=== PATIENT | male | born 1950 | race African-American/Black ===

== ENCOUNTER 2021-11-07 09:29 | Emergency (ER) | payer SELFPAY ==
[2021-11-07 09:46] VITALS: BP 135/94; PULSE 88; TEMP 98.5; BMI 18.8
[2021-11-07] MEDS ORDERED: SODIUM CHLORIDE 0.9% 500 ML INFUS.BAG IV ONE (10:19)
[2021-11-07 11:17] LABS: BASO % 0.7 % (0-2.0); EOS % 0.2 % (0-4.5); HEMATOCRIT 39.6 % (35.4-49); HEMOGLOBIN 13.2 GM/dL (11.7-16.9); LYMPH % 11.7 % (8-40); MCH 31.5 pg (25.7-33.7); MCHC 33.4 g/dl (32.0-35.9); MEAN CELL VOLUME 94.1 fl (80-96); MEAN PLT VOLUME 9.7 fl (7.5-11.1); MONO % 8.2 % (3.8-10.2); NEUT % 79.2 % (42.8-82.8); PLATELET COUNT 339 10^3/uL (134-434); RDW 14.1 % (11.9-15.9)
[2021-11-07 12:12] LABS: ALBUMIN 3.5 g/dl (3.4-5.0); CALCIUM 9.3 mg/dL (8.5-10.1)
[2021-11-07 12:13] LABS: BLOOD UREA NITROGEN 25.7 mg/dL (7-18)
[2021-11-07 12:15] LABS: CREATININE 1.2 mg/dL (0.55-1.3)
[2021-11-07 12:17] LABS: BILIRUBIN,TOTAL 0.4 mg/dL (0.2-1)
[2021-11-07 13:42] LABS: EPI CELLS 6 /uL (0-25.1); HYALINE CASTS 2 /uL (0-3.1); URINE APPEARANCE CLEAR; URINE BACTERIA 2 /uL (0-1359); URINE BILIRUBIN NEGATIVE (NEGATIVE); URINE COLOR YELLOW; URINE GLUCOSE (UA) NEGATIVE (NEGATIVE); URINE KETONE NEGATIVE (NEGATIVE); URINE LEUK ESTERASE NEGATIVE (NEGATIVE); URINE NITRITE NEGATIVE (NEGATIVE); URINE PROTEIN 2+ (NEGATIVE); URINE RBC 10 /uL (0-23.9); URINE WBC 11 /uL (0-25.8)
== END 2021-11-07 14:30 | disposition home or self-care (01) ==
LOC: JER 09:29
DX: R05.1 Acute cough (principal)
CPT/HCPCS: 0241U-QW; 71046-TC-FY; 80053; 81003; 83690; 84484; 85025; 87086; 93005; 93010; 99285-25

== ENCOUNTER 2023-10-30 10:08 | Emergency (ER) | payer OTHER ==
[2023-10-30 10:23] VITALS: RESP 16; BMI 14.8
[2023-10-30] MEDS ORDERED: LIDOCAINE HCL 2% JELLY 11 ML TP ONE (10:48)
[2023-10-30] MEDS: LIDOCAINE HCL 2% JELLY 10 ML CARTRIDGE UR ONE (11:26)
[2023-10-30 12:04] LABS: HEMATOCRIT 30.4 % (35.4-49); HEMOGLOBIN 9.8 GM/dL (11.7-16.9); MCH 27.7 pg (25.7-33.7); MCHC 32.4 g/dl (32.0-35.9); MEAN CELL VOLUME 85.4 fl (80-96); MEAN PLT VOLUME 7.5 fl (7.5-11.1); PLATELET COUNT 489 10^3/uL (134-434); RBC 3.56 M/mm3 (4.00-5.60); WHITE BLOOD COUNT 16.4 K/mm3 (4.0-10.0)
[2023-10-30 12:08] LABS: ACTIVATED PTT 27.7 SECONDS (25.2-36.5); INR 1.06 (0.83-1.09)
[2023-10-30 12:17] LABS: POTASSIUM 3.1 mmol/L (3.5-5.1)
[2023-10-30 12:19] LABS: BLOOD UREA NITROGEN 10.5 mg/dL (7-18); CALCIUM 9.3 mg/dL (8.5-10.1)
[2023-10-30 12:21] LABS: URIC ACID 5.1 mg/dL (2.6-7.2)
[2023-10-30 12:24] LABS: BILIRUBIN,TOTAL 0.4 mg/dL (0.2-1)
[2023-10-30 12:48] LABS: URINE APPEARANCE CLEAR; URINE BILIRUBIN NEGATIVE (NEGATIVE); URINE COLOR YELLOW; URINE GLUCOSE (UA) NEGATIVE (NEGATIVE); URINE KETONE NEGATIVE (NEGATIVE); URINE LEUK ESTERASE NEGATIVE (NEGATIVE); URINE NITRITE NEGATIVE (NEGATIVE); URINE PROTEIN TRACE (NEGATIVE); URINE UROBILINOGEN 0.2 mg/dL (0.2-1.0)
[2023-10-30 12:50] LABS: EPI CELLS 15.1 /uL (0-25.1); HYALINE CASTS 0.29 /uL (0-3.1); URINE BACTERIA 10.4 /uL (0-1359); URINE RBC 22.2 /uL (0-23.9); URINE WBC 3.2 /uL (0-25.8)
[2023-10-30 12:56] LABS: ANISOCYTOSIS 1+; MACROCYTOSIS 0
[2023-10-30 15:56] VITALS: BP 162/87; PULSE 97; TEMP 101
== END 2023-10-30 18:08 | disposition home or self-care (01) ==
LOC: JER 10:08
DX: R33.9 Retention of urine, unspecified (principal); R19.00 Intra-abdominal and pelvic swelling, mass and lump, unspecified site; L03.311 Cellulitis of abdominal wall
CPT/HCPCS: 36415; 74177-TC; 80053; 81003; 83615; 84550; 85025; 85610; 85730; 86850; 86900; 86901; 87086; 93005; 93010; 99285-25; Q9967

== ENCOUNTER 2023-11-02 09:31 | Emergency (ER) | payer OTHER ==
[2023-11-02 09:51] VITALS: BMI 18.1
[2023-11-02] MEDS ORDERED: LIDOCAINE HCL 2% JELLY 10 ML CARTRIDGE UR ONE (11:25)
[2023-11-02] MEDS ORDERED: LIDOCAINE HCL 2% JELLY 6 ML TP ONE (12:22)
[2023-11-02 14:36] VITALS: BP 158/58; PULSE 97; RESP 20; TEMP 98.3
== END 2023-11-02 15:07 | disposition home or self-care (01) ==
LOC: JER 09:31
DX: T83.84XA Pain due to genitourinary prosthetic devices, implants and grafts, initial encounter (principal); R33.9 Retention of urine, unspecified; X58.XXXA Exposure to other specified factors, initial encounter
CPT/HCPCS: 99283-25; 99284-25